=== PATIENT | female | born 1965 ===

== ENCOUNTER 2017-02-28 12:15 | Emergency (ER) | payer MEDICAID ==
[2017-02-28 12:19] VITALS: TEMP 98.8; BMI 38.0
[2017-02-28] MEDS ORDERED: Sodium Chloride 0.9% 1,000 ML IV ONE (12:34)
[2017-02-28 13:17] LABS: BASO # 0.1 K/uL (0.0-0.2); EOS # 0.2 K/uL (0.0-0.7); EOS % 1.5 % (0.0-4.0); RED CELL DISTRIBUTION WIDTH 19.3 % (11.5-14.5)
[2017-02-28 13:26] LABS: CHLORIDE 102 mmol/L (98-107); POTASSIUM 3.9 mmol/L (3.6-5.2); RBC URINE 1 /hpf (0-3); SODIUM 140 mmol/L (132-148); URINE BACTERIA RARE (<OCC); URINE BILIRUBIN NEGATIVE (NEGATIVE); URINE BLOOD NEGATIVE (NEGATIVE); URINE COLOR Yellow (YELLOW); URINE GLUCOSE (UA) NORMAL (Normal); URINE KETONE NEGATIVE (NEGATIVE); URINE LEUKOCYTE ESTERASE NEG Leu/uL (Negative); URINE PROTEIN NEGATIVE (NEGATIVE); URINE UROBILINOGEN NORMAL mg/dL (0.2-1.0); WBC URINE < 1 /hpf (0-5)
[2017-02-28 13:28] LABS: ALB/GLOB RATIO 1.3 (1.0-2.1); AST/SGOT 26 U/L (14-36); BILIRUBIN,TOTAL < 0.1 mg/dL (0.2-1.3); BLOOD UREA NITROGEN 8 mg/dL (7-17); CARBON DIOXIDE 23 mmol/L (22-30); GFR AFRICAN-AMERICAN > 60; TOTAL PROTEIN 7.9 g/dL (6.3-8.3)
[2017-02-28 13:29] LABS: ALKALINE PHOSPHATASE 79 U/L (38-126); ALT/SGPT 27 U/L (9-52); BASO % 1.2 % (0.0-2.0); CALCIUM 9.5 mg/dl (8.6-10.4); GLUCOSE,RANDOM 86 mg/dL (65-105); HEMATOCRIT 30.4 % (34.0-47.0); LYMPH # 3.8 K/uL (1.0-4.3); LYMPH % 34.3 % (20.0-40.0); MEAN CELL VOLUME 65.7 fL (81.0-99.0); MEAN CORPUSCULAR HEMOGLOBIN 19.2 pg (27.0-31.0); MEAN CORPUSCULAR HGB CONC 29.3 g/dL (33.0-37.0); MEAN PLATELET VOLUME 8.9 fL (7.2-11.7); MONO # 0.6 K/uL (0.0-0.8); MONO % 5.7 % (0.0-10.0); WHITE BLOOD COUNT 11.2 K/uL (4.8-10.8)
--- NOTE | 2017-02-28 13:48 | C.PDOC ---
History Of Present Illness 51 y/o female whose PMHx includes Iron Deficiency Anemia, presents to the ED after being sent from clinic for evaluation of dizziness and weakness which has been occurring in intermittent episodes for 2 weeks. As per clinic note, patient 's last hemoglobin count was 7.8 g/dL last month. Patient reports her LMP was and states it continued for the duration of 8 days. Since then, patient has been experiencing weakness, lightheadedness, and generalized tiredness. Otherwise, patient denies chest pain, shortness of breath, numbness/weakness, or history of blood transfusions in the past. Patient states she has been compliant with taking her iron supplements. Time Seen by Provider: 02/28/17 12:34 Chief Complaint (Nursing): Abnormal Labs History Per: Patient History/Exam Limitations: no limitations Onset/Duration Of Symptoms: Intermittent Episodes (around 2 weeks ) Current Symptoms Are (Timing): Still Present Additional History Per: Patient Past Medical History Reviewed: Historical Data, Nursing Documentation, Vital Signs Vital Signs: Last Vital Signs Temp 98.8 F 02/28/17 12:19 Pulse 74 02/28/17 13:58 Resp 18 02/28/17 13:58 BP 118/84 02/28/17 13:58 Pulse Ox 99 02/28/17 14:50 - Medical History PMH: Hypothyroidism Surgical History: No Surg Hx - [facility] Procedures LYMPHATIC STRUCT BIOPSY (03/10/14) PERCUTAN NEEDLE BIOPSY OF BREAST (02/24/14) Family History: States: Unknown Family Hx - Social History Hx Tobacco Use: No Hx Alcohol Use: No Hx Substance Use: No - Immunization History Hx Tetanus Toxoid Vaccination: No Hx Influenza Vaccination: No Hx Pneumococcal Vaccination: No Review Of Systems Except As Marked, All Systems Reviewed And Found Negative. Constitutional: Positive for: Malaise Cardiovascular: Negative for: Chest Pain Respiratory: Negative for: Shortness of Breath Neurological: Positive for: Weakness, Other (+lightheadedness). Negative for: Numbness, Headache Physical Exam - Physical Exam Appears: Non-toxic, No Acute Distress Skin: Normal Color, Warm, Dry Head: Atraumatic, Normacephalic Eye(s): bilateral: Normal Inspection, EOMI, Other (no conjunctival pallor, no nystagmus ) Nose: Normal Oral Mucosa: Moist Neck: Supple Chest: Symmetrical, No Deformity, No Tenderness Cardiovascular: Rhythm Regular, No Murmur Respiratory: Normal Breath Sounds, No Rales, No Rhonchi, No Wheezing Gastrointestinal/Abdominal: Soft, No Tenderness, No Guarding, No Rebound Back: Normal Inspection, No Vertebral Tenderness, No Paraspinal Tenderness Extremity: Bilateral: Atraumatic, Normal Color And Temperature, Normal ROM Pulses: Left Radial: Normal, Right Radial: Normal Neurological/Psych: Oriented x3, Normal Speech, Other (no focal deficits ) Gait: Steady ED Course And Treatment - Laboratory Results Result Diagrams: 02/28/17 13:14 02/28/17 13:14 Lab Interpretation: No Acute Changes O2 Sat by Pulse Oximetry: 99 (on RA) Pulse Ox Interpretation: Normal Medical Decision Making Medical Decision Making: Impression: 51y/o female with dizziness, weakness, and lightheadedness Plan: * labs * EKG * IV Fluids * reassess and disposition Progress Notes: labs and EKG ordered. Patient received IV Fluids. Lab results reviewed. Results show patient's hemoglobin level is 8.9 g/dL, which is an improvement since January and better than baseline. Attempted to contact clinic to speak with either Dr. White or resident without success. On reassessment, patient is resting comfortably, remains alert & oriented and is in no apparent distress. Patient does not display any hemodynamic instability and is stable for discharge. Case discussed with Dr. Beal, who agrees with plan to discharge. Lab results are explained to patient and she is advised continue taking Iron supplements as instructed and to follow up with clinic within a timely manner for further evaluation. Disposition Counseled Patient/Family Regarding: Diagnosis, Need For Followup - Disposition Referrals: Loreta White MD [Staff Provider] - Disposition: HOME/ ROUTINE Disposition Time: 13:46 Condition: STABLE Additional Instructions: Por favor, siga en la clnica en los prximos linares Ayesha lquidos, descanse y tome suplementos de narda para la anemia Regrese al servicio de urgencias en cualquier momento si los sntomas persisten o empeoran. Instructions: Iron Deficiency Anemia (ED) Print Language: CROATIAN - POA Present On Arrival: None - Clinical Impression Clinical Impression: EMERALD (iron deficiency anemia) - PA / SLIP MIXER / Resident Statement /DO has reviewed & agrees with the documentation as recorded. - Scribe Statement The provider has reviewed the documentation as recorded by the Scribe (Geno Melchor) All medical record entries made by the Scribe were at my direction and personally dictated by me. I have reviewed the chart and agree that the record accurately reflects my personal performance of the history, physical exam, medical decision making, and the department course for this patient. I have also personally directed, reviewed, and agree with the discharge instructions and disposition.
[2017-02-28 13:59] VITALS: BP 118/84; PULSE 74; RESP 18
[2017-02-28 14:18] VITALS: O2SAT 99
== END 2017-02-28 13:59 | disposition home or self-care (01) ==
LOC: C.ER 12:15
DX: D50.9 Iron deficiency anemia, unspecified (principal)

== ENCOUNTER 2017-07-09 12:34 | Emergency (ER) | payer MEDICAID ==
[2017-07-09 12:51] VITALS: TEMP 98.8
[2017-07-09] MEDS ORDERED: Sodium Chloride 0.9% 1,000 ML IV ONE (13:03)
[2017-07-09 13:23] LABS: HEMATOCRIT 29.5 % (34.0-47.0); MEAN CORPUSCULAR HEMOGLOBIN 20.7 pg (27.0-31.0); MEAN CORPUSCULAR HGB CONC 30.8 g/dL (33.0-37.0); MEAN PLATELET VOLUME 8.3 fL (7.2-11.7); RED CELL DISTRIBUTION WIDTH 17.9 % (11.5-14.5); WHITE BLOOD COUNT 8.4 K/uL (4.8-10.8)
[2017-07-09 13:24] LABS: BASO # 0.1 K/uL (0.0-0.2); BASO % 0.7 % (0.0-2.0); EOS # 0.1 K/uL (0.0-0.7); EOS % 1.7 % (0.0-4.0); LYMPH # 2.9 K/uL (1.0-4.3); LYMPH % 34.5 % (20.0-40.0); MONO # 0.5 K/uL (0.0-0.8)
--- NOTE | 2017-07-09 13:30 | C.PDOC ---
History Of Present Illness 51 year old female presents to the ED with complaints of vaginal bleeding for a few days. Patient notes an appointment in July with Dr. Dubois for a scheduled hysterectomy due to fibroids and bleeding. She denies fever, chills, nausea, vomiting or other complaints. Time Seen by Provider: 07/09/17 12:56 Chief Complaint (Nursing): Female Genitourinary History Per: Patient History/Exam Limitations: no limitations Onset/Duration Of Symptoms: Days (2 days ) Current Symptoms Are (Timing): Still Present Severity: Mild Associated Symptoms: denies: Fever, Chills, Nausea, Vomiting, Diarrhea Recent travel outside of the [place]: No Abnormal Vaginal Bleeding: Yes Past Medical History Reviewed: Historical Data, Nursing Documentation, Vital Signs Vital Signs: Last Vital Signs Temp 98.8 F 07/09/17 12:43 Pulse 78 07/09/17 14:24 Resp 16 07/09/17 14:24 BP 107/50 L 07/09/17 14:24 Pulse Ox 98 07/09/17 14:24 - Medical History PMH: Anemia, Hypothyroidism - [facility] Procedures LYMPHATIC STRUCT BIOPSY (03/10/14) PERCUTAN NEEDLE BIOPSY OF BREAST (02/24/14) Family History: States: Unknown Family Hx - Social History Hx Tobacco Use: No Hx Alcohol Use: No Hx Substance Use: No - Immunization History Hx Tetanus Toxoid Vaccination: No Hx Influenza Vaccination: No Hx Pneumococcal Vaccination: No Review Of Systems Constitutional: Negative for: Fever, Chills Cardiovascular: Negative for: Chest Pain Respiratory: Negative for: SOB with Excertion Gastrointestinal: Negative for: Nausea, Vomiting, Abdominal Pain, Diarrhea Genitourinary: Positive for: Vaginal Bleeding. Negative for: Dysuria, Hematuria Physical Exam - Physical Exam Appears: Non-toxic, No Acute Distress Skin: Warm, Dry Head: Atraumatic Eye(s): bilateral: Normal Inspection, EOMI Oral Mucosa: Moist Neck: Supple Chest: Symmetrical, No Deformity Cardiovascular: Rhythm Regular Respiratory: No Rhonchi, No Wheezing Gastrointestinal/Abdominal: Soft, No Tenderness, No Distention, No Guarding, No Rebound Pelvic: Vaginal Bleeding Extremity: Normal ROM, No Tenderness Neurological/Psych: Oriented x3, Normal Speech, Normal Cognition Gait: Steady ED Course And Treatment - Laboratory Results Result Diagrams: 07/09/17 13:17 07/09/17 13:17 Lab Interpretation: No Acute Changes Urine POC: Negative O2 Sat by Pulse Oximetry: 99 (room air ) Pulse Ox Interpretation: Normal Progress Note: Labs and UA were ordered. Patient was given fluids. treated with IVF NSS. On re-evaluation abdomen soft non-tender Reassessment Condition: Unchanged Disposition Counseled Patient/Family Regarding: Studies Performed, Diagnosis, Need For Followup - Disposition Referrals: Sukh Dubois [Staff Provider] - Disposition: HOME/ ROUTINE Disposition Time: 14:30 Condition: STABLE Additional Instructions: Follow up with [facility] for further evaluation Prescriptions: Nitrofurantoin Macrocrystals [Macrobid] 1 cap PO BID #14 cap Instructions: Dysfunctional Uterine Bleeding (ED), Uterine Fibroids (ED) Forms: [employer] (Bulgarian) Print Language: THAI - POA Present On Arrival: None - Clinical Impression Clinical Impression: DUB (dysfunctional uterine bleeding), Fibroids - Scribe Statement The provider has reviewed the documentation as recorded by the Scribcelsa Schneider All medical record entries made by the Félixibcelsa were at my direction and personally dictated by me. I have reviewed the chart and agree that the record accurately reflects my personal performance of the history, physical exam, medical decision making, and the department course for this patient. I have also personally directed, reviewed, and agree with the discharge instructions and disposition.
[2017-07-09 13:40] LABS: RBC URINE 3047 /hpf (0-3); URINE BACTERIA OCC (<OCC); URINE BILIRUBIN NEGATIVE (NEGATIVE); URINE BLOOD 3+ (NEGATIVE); URINE COLOR Red (YELLOW); URINE GLUCOSE (UA) NORMAL (Normal); URINE KETONE NEGATIVE (NEGATIVE); URINE LEUKOCYTE ESTERASE TRACE Leu/uL (Negative); URINE PROTEIN 2+ mg/dL (NEGATIVE); URINE UROBILINOGEN NORMAL mg/dL (0.2-1.0); WBC CLUMPS RARE /hpf; WBC URINE 684 /hpf (0-5)
[2017-07-09 13:41] LABS: CHLORIDE 102 mmol/L (98-107); SODIUM 138 mmol/L (132-148)
[2017-07-09 13:44] LABS: BLOOD UREA NITROGEN 8 mg/dL (7-17); CARBON DIOXIDE 25 mmol/L (22-30); GFR AFRICAN-AMERICAN > 60
[2017-07-09 13:45] LABS: CALCIUM 9.1 mg/dl (8.6-10.4); GLUCOSE,RANDOM 119 mg/dL (65-105)
[2017-07-09 14:24] VITALS: BP 107/50; PULSE 78; RESP 16
[2017-07-09 17:35] VITALS: O2SAT 99
== END 2017-07-09 14:24 | disposition home or self-care (01) ==
LOC: C.ER 12:34
DX: N93.8 Other specified abnormal uterine and vaginal bleeding (principal); D25.9 Leiomyoma of uterus, unspecified
CPT/HCPCS: 80048; 81001; 84703; 85025; 85610; 86850; 86900; 96360; 99285; J7040

== ENCOUNTER 2017-08-22 08:27 | Inpatient (IN) | payer MEDICAID ==
[2017-08-06 13:06] VITALS: BMI 38.9
--- NOTE | 2017-08-21 21:21 | CP.PCM.HP ---
History of Present Illness - History of Present Illness History of Present Illness: 51yo female with a h/o menorrhagia and fibroid uterus reporting here today for GARLAND and bilateral salpingectomy. The risks, benefits and alternatives has been discussed and pt has elected to proceed with the GARLAND. Present on Admission - Present on Admission Any Indicators Present on Admission: No Past Patient History - Infectious Disease Hx of Infectious Diseases: None - Past Medical History & Family History Past Medical History?: Yes - Past Social History Smoking Status: Never Smoked - CARDIAC Hx Cardiac Disorders: No - PULMONARY Hx Respiratory Disorders: No - NEUROLOGICAL Hx Neurological Disorder: Yes - HEENT Hx HEENT Problems: No - RENAL Hx Chronic Kidney Disease: No - ENDOCRINE/METABOLIC Hx Endocrine Disorders: Yes Hx Hypothyroidism: Yes - HEMATOLOGICAL/ONCOLOGICAL Hx Blood Disorders: Yes Hx Anemia: Yes (IRON DEFICENCY(DUE TO HEAVY VAGINAL BLEEDING)) - INTEGUMENTARY Hx Dermatological Problems: Yes Other/Comment: HX: HIDRADENITIS SUPPURATIVA - MUSCULOSKELETAL/RHEUMATOLOGICAL Hx Musculoskeletal Disorders: No - GASTROINTESTINAL Hx Gastrointestinal Disorders: No - GENITOURINARY/GYNECOLOGICAL Hx Genitourinary Disorders: Yes Other/Comment: HX: UTERINE VAGINAL BLEEDING( MENORRHAGIA)/LEIOMYOMA OF UTERUS - PSYCHIATRIC Hx Psychophysiologic Disorder: Yes Hx Anxiety: Yes Hx Depression: Yes Hx Substance Use: No - SURGICAL HISTORY Hx Surgeries: Yes Hx Tubal Ligation: Yes (1990) Meds Allergies/Adverse Reactions: Allergies Allergy/AdvReac Type Severity Reaction Status Date / Time No Known Allergies Allergy Verified 07/09/17 12:50 Physical Exam - Constitutional Appears: Well - Eye Exam Eye Exam: EOMI - Respiratory Exam Respiratory Exam: Clear to Auscultation Bilateral, NORMAL BREATHING PATTERN - Cardiovascular Exam Cardiovascular Exam: REGULAR RHYTHM, RRR - GI/Abdominal Exam GI & Abdominal Exam: Normal Bowel Sounds, Soft - Exam Bimanual exam: Uterine Enlargement - Extremities Exam Extremities exam: Positive for: normal inspection - Neurological Exam Neurological exam: Alert, Oriented x3 Assessment & Plan (1) Menorrhagia Status: Acute (2) Fibroids Status: Acute - Assessment and Plan (Free Text) Plan: NPO IV Fluids Mefoxin 2gms IVPB Sequential compression device - Date & Time Date: 08/22/17 Time: 07:30 Decision To Admit - Pt Status Changed To: Hospital Disposition Of: Inpatient - Admit Certification Admit to Inpatient:: After my assessment, the patient will require hospitalization for at least two midnights. This is because of the severity of symptoms shown, intensity of services needed, and/or the medical risk in this patient being treated as an outpatient. - InPatient: Physician Admission Certification:: monica - . Bed Request Type: AUTOMOTIVE ARTIST Admitting Physician: Sukh Dubois
[2017-08-22] MEDS ORDERED: Midazolam 2 MG/2 ML VIAL ONE (11:07)
[2017-08-22] MEDS ORDERED: Propofol 10 mg/ml Inj (20 ML) ONE (11:07)
[2017-08-22] MEDS ORDERED: Lactated Ringer's 1,000 ML IV ONE ×2 (11:08→12:22)
[2017-08-22] MEDS ORDERED: cefOXitin IV 2 gm in Dextrose 2 GM/50 ML BAG IVPB ONE (11:16)
[2017-08-22] MEDS ORDERED: Vasopressin 20 Units/ml Inj ONE ×2 (11:16)
[2017-08-22] MEDS ORDERED: Rocuronium 10 mg/ml (5 ml) ONE ×2 (11:50→11:51)
[2017-08-22] MEDS ORDERED: Morphine 4 MG/ML VIAL ONE (12:05)
[2017-08-22] MEDS ORDERED: Neostigmine Methylsulfate 3mg/3ml Syringe IV ONE (13:50)
[2017-08-22] MEDS ORDERED: Oxycodone/Acetaminophen 5/325 mg Tab PO PRN ×2 (13:50→13:52)
--- NOTE | 2017-08-22 13:50 | PCM.SURG1 ---
Surgeon's Initial Post Op Note - Surgeon's Notes Surgeon: Dr Dubois Cut Off Machine Unloader: Dr Biswas, Dr Downs, Cecelia Henry( FP Resident ) Type of Anesthesia: General Endo Anesthesia Administered By: DELFINO Cochran Supervised by Dr Tigre Adan Pre-Operative Diagnosis: Fibroid Uterus with Menorrhagia Operative Findings: 8-10wk sized multinodular fibroid uterus with normal appearing bilateral ovaries and fallopian tubes. EBL- 100mls. IV Fluids- 1300mls. Urine output- 200mls Post-Operative Diagnosis: Saame as Preop diagnosis Operation Performed: Total Abdominal Hysterectomy with Bilateral Salpingectomy Specimen/Specimens Removed: Uterus with Cervix and Bilateral fallopian tubes Estimated Blood Loss: EBL {In ML}: 100 Post-Op Condition: Good Date of Surgery/Procedure: 08/22/17 Time of Surgery/Procedure: 13:51
[2017-08-22] MEDS ORDERED: cefOXitin IV 1 gm in Dextrose 1 GM/50 ML BAG IVPB SCH (14:00)
[2017-08-22] MEDS ORDERED: Acetaminophen IV 1,000 MG in Premixed IV 1 EA IV PRN ×2 (14:02→15:55)
[2017-08-22] MEDS: HYDROmorphone 0.5 mg/0.5 ml ISec IVP PRN ×4 (14:10→15:10)
[2017-08-22] MEDS: Sodium Chloride 0.9% 1,000 ML IV SCH (19:00)
[2017-08-22] MEDS: cefOXitin IV 1 gm in Dextrose 1 GM/50 ML BAG IVPB SCH (19:57)
[2017-08-23] MEDS: cefOXitin IV 1 gm in Dextrose 1 GM/50 ML BAG IVPB SCH ×2 (03:50→11:12)
[2017-08-23] MEDS: Sodium Chloride 0.9% 1,000 ML IV SCH (04:57)
[2017-08-23 07:32] LABS: HEMATOCRIT 25.9 % (34.0-47.0); MEAN CELL VOLUME 65.1 fL (81.0-99.0); MEAN CORPUSCULAR HEMOGLOBIN 19.8 pg (27.0-31.0); MEAN CORPUSCULAR HGB CONC 30.5 g/dL (33.0-37.0); MEAN PLATELET VOLUME 8.7 fL (7.2-11.7); RED CELL DISTRIBUTION WIDTH 17.1 % (11.5-14.5); WHITE BLOOD COUNT 11.7 K/uL (4.8-10.8)
[2017-08-23 07:59] LABS: CHLORIDE 100 mmol/L (98-107); POTASSIUM 3.9 mmol/L (3.6-5.2); SODIUM 134 mmol/L (132-148)
[2017-08-23 08:01] LABS: CARBON DIOXIDE 22 mmol/L (22-30); GFR AFRICAN-AMERICAN > 60
[2017-08-23 08:02] LABS: BLOOD UREA NITROGEN 7 mg/dL (7-17); CALCIUM 8.9 mg/dl (8.6-10.4); GLUCOSE,RANDOM 108 mg/dL (65-105)
--- NOTE | 2017-08-23 09:20 | CP.PCM.PN ---
Objective - Vital Signs/Intake and Output Vital Signs (last 24 hours): Temp Pulse Resp BP Pulse Ox 98.3 F 80 18 150/70 100 08/23/17 07:25 08/23/17 07:25 08/23/17 07:25 08/23/17 07:25 08/23/17 07:25 Intake and Output: 08/23/17 08/23/17 06:59 18:59 Intake Total 600 Output Total 1550 Balance -950 - Medications Medications: Current Medications Hydromorphone/Sodium Chloride (Dilaudid Minesweeping Officer) 6 mg IV Q4H PRN; Protocol PRN Reason: Pain, severe (8-10) Last Admin: 08/23/17 04:48 Dose: 6 mg Sodium Chloride (Sodium Chloride 0.9%) 1,000 mls @ 75 mls/hr IV .[id number] [facility] Last Admin: 08/23/17 04:57 Dose: Not Given Acetaminophen 1,000 mg/ (Miscellaneous) 100 mls @ 400 mls/hr IV ONCE PRN Stop: 08/23/17 18:00 Last Admin: 08/22/17 16:00 Dose: 100 mls Cefoxitin Sodium (Mefoxin Iv 1 Gm Duplex) 1 gm in 50 mls @ 50 mls/hr IVPB Q8H [facility] Stop: 08/23/17 12:59 Last Admin: 08/23/17 03:50 Dose: 50 mls/hr Ibuprofen (Motrin Tab) 600 mg PO Q4H PRN PRN Reason: Pain, Mild (1-3) Oxycodone/Acetaminophen (Percocet 5/325 Mg Tab) 1 tab PO Q4 PRN PRN Reason: Pain, moderate (4-7) Stop: 08/25/17 13:51 Oxycodone/Acetaminophen (Percocet 5/325 Mg Tab) 2 tab PO Q4H PRN PRN Reason: Pain, severe (8-10) Stop: 08/25/17 13:53 - Labs Labs: 08/23/17 07:18 08/23/17 07:18
[2017-08-23 11:21] VITALS: O2SAT 99
--- NOTE | 2017-08-23 17:17 | CP.PCM.DIS ---
Provider - Provider Date of Admission: 08/22/17 13:50 Attending physician: Sukh Dubois Time Spent in preparation of Discharge (in minutes): 40 Hospital Course - Lab Results Lab Results: Most Recent Lab Values WBC 11.7 K/uL (4.8-10.8) H 08/23/17 07:18 RBC 3.98 Mil/uL (3.80-5.20) 08/23/17 07:18 Hgb 7.9 g/dL (11.0-16.0) L 08/23/17 07:18 Hct 25.9 % (34.0-47.0) L 08/23/17 07:18 MCV 65.1 fL (81.0-99.0) L 08/23/17 07:18 MCH 19.8 pg (27.0-31.0) L 08/23/17 07:18 MCHC 30.5 g/dL (33.0-37.0) L 08/23/17 07:18 RDW 17.1 % (11.5-14.5) H 08/23/17 07:18 Plt Count 287 K/uL (130-400) 08/23/17 07:18 MPV 8.7 fL (7.2-11.7) 08/23/17 07:18 Sodium 134 mmol/L (132-148) 08/23/17 07:18 Potassium 3.9 mmol/L (3.6-5.2) 08/23/17 07:18 Chloride 100 mmol/L (98-107) 08/23/17 07:18 Carbon Dioxide 22 mmol/L (22-30) 08/23/17 07:18 Anion Gap 15 (10-20) 08/23/17 07:18 BUN 7 mg/dL (7-17) 08/23/17 07:18 Creatinine 0.5 mg/dL (0.7-1.2) L 08/23/17 07:18 Est GFR ( Amer) > 60 08/23/17 07:18 Est GFR (Non-Af Amer) > 60 08/23/17 07:18 Random Glucose 108 mg/dL (65-105) H 08/23/17 07:18 Calcium 8.9 mg/dl (8.6-10.4) 08/23/17 07:18 Blood Type A POSITIVE 08/22/17 09:32 Antibody Screen Negative 08/22/17 09:32 - Hospital Course Hospital Course: 51yo female with a h/o menorrhagia and fibroid uterus reporting here today for GARLAND and bilateral salpingectomy. The risks, benefits and alternatives has been discussed and pt has elected to proceed with the GARLAND. Hospital Course: Total Abdominal Hysterectomy with Bilateral Salpingectomy performed on 08/22/[address] Dubois. 8-10wk sized multinodular fibroid uterus with normal appearing bilateral ovaries and fallopian tubes. EBL- 100mls. IV Fluids- 1300mls. Urine output- 200mls Patient was seen and examined in the morning and afternoon. Patient states she has been ambulating and is passing gas. Patient has been urinating without difficulty. Patient states her pain is much improved from yesterday. She denies nausea or vomiting. Patient is hemodynamically stable. Patient stable to be discharged home per Dr. Dubois. Patient to continue home medications. Patient to start new medications: Percocet every 4 hours as needed for severe pain. Motrin 600mg every 6 hours as needed for mild to moderate pain. Cephalxin 500mg every 8 hours for 5 days. Sindy-Sequels 325mg once daily. No heavy lifting. Keep abdominal wound clean and dry. Patient instructed to follow up with Dr. Dubois in the clinic in one week. Please call [phone] to make an appointment. Discharge Exam - Head Exam Head Exam: ATRAUMATIC, NORMAL INSPECTION, NORMOCEPHALIC - Eye Exam Eye Exam: EOMI, Normal appearance - ENT Exam ENT Exam: Mucous Membranes Moist - Respiratory Exam Respiratory Exam: NORMAL BREATHING PATTERN - Cardiovascular Exam Cardiovascular Exam: REGULAR RHYTHM, RRR - GI/Abdominal Exam GI & Abdominal Exam: Normal Bowel Sounds, Soft, Tenderness Additional comments: abdominal incision dry clean and intact - Extremities Exam Extremities exam: normal inspection - Neurological Exam Neurological exam: Alert, Oriented x3 - Psychiatric Exam Psychiatric exam: Normal Affect, Normal Mood - Skin Skin Exam: Dry, Intact, Normal Color, Warm Discharge Plan - Discharge Medications Prescriptions: Ferrous Sulfate [Feosol] 325 mg PO ONCE #30 tab Ibuprofen [Motrin Tab] 600 mg PO Q6H PRN #28 tab PRN Reason: Pain, Mild (1-3) oxyCODONE/Acetaminophen [Percocet 5/325 mg Tab] 1 tab PO Q4 PRN #20 tab PRN Reason: Pain, Moderate (4-7) - Follow Up Plan Condition: GOOD Disposition: HOME/ ROUTINE
[2017-08-23 18:12] VITALS: RESP 20
--- NOTE | 2017-08-24 03:01 | OP ---
PROCEDURE DATE: PREOPERATIVE DIAGNOSES: A 51-year-old female with fibroid uterus and menorrhagia, unresponsive to medical management. POSTOPERATIVE DIAGNOSES: A 51-year-old female with fibroid uterus and menorrhagia, unresponsive to medical management. PROCEDURE DONE: Total abdominal hysterectomy with bilateral salpingectomy. SURGEON: Sukh Dubois MD ADMISSIONS MANAGER RN: .Dr. Downs and Rhoda Mclean, who is a family practice resident. TYPE OF ANESTHESIA: General endotracheal. ANESTHESIA ADMINISTERED BY: Dolores Bates CRNA, supervised by Tigre Adan MD FINDINGS: A 8-to 10-week size multinodular fibroid uterus with normal-appearing bilateral ovaries and fallopian tubes. ESTIMATED BLOOD LOSS: 100 mL IV FLUID INTAKE: 1300 mL. URINE OUTPUT: 200 mL of clear urine. COMPLICATIONS: There were no complications. SPECIMEN: Uterus and fallopian tubes to pathology. DESCRIPTION OF PROCEDURE: After obtaining informed consent following discussion about risks, benefits, alternatives and possible complications, the patient was sent to the OR with IV running and Garland catheter in place. The The patient was placed in a supine position on the OR table where general anesthesia was induced without difficulty. The patient was then prepped and draped in the usual sterile fashion. A Pfannenstiel skin incision was made about 2.5 cm from the pubic symphysis and this was carried through the subcutaneous tissue, so the rectus fascia was identified. A transverse incision was made in the rectus fascia and this was extended laterally to both sides using Metzenbaum scissors. The rectus fascia was lifted above the underlying rectus muscles both superiorly and inferiorly by means of a blunt dissection and sharp dissection with Dunne scissors. The rectus muscle was in the midline to expose the peritoneum, which was tented between 2 Barbara clamps and sharply entered with Metzenbaum scissors and with good visualization of the bladder. Once the abdominal cavity was entered, the above findings were noted and O'Esquivel-O'Karlos retractor was placed into the incision and the bowels were packed away using moist laparotomy sponges. The uterus was lifted into the incision and a uterine corkscrew was placed on the fundus to help retraction and manipulation of the uterus. The round ligaments on both sides were clamped, cauterized and transacted using the LigaSure device. The bladder reflection on the surface of the cervix was incised along the reflection and was later pushed inferiorly using sponge forceps to push the bladder away from the cervix. When these have been completed, the ovarian ligaments and fallopian tubes attachment to both corner of the uterus were grasped with a LigaSure device, cauterized and transacted. Hemostasis was assured. After these steps on both sides, the right uterine vessels were skeletonized using Metzenbaum scissors and pickup forceps. The uterine vessels on the right side were grasped with Becky clamps at the level of the internal os. These were clamped, cut and doubly ligated with Vicryl 0 sutures. The same procedure was repeated on the left side. There was a sequential clamping of the tissues along both sides of the cervix using Becky clamps where the tissues were clamped, cut and ligated using Vicryl 0 sutures. This was performed until the vagina vault was encountered. The uterus was at this point amputated from the vault by means of Shant scissors. The vaginal cuff was sutured to the ipsilateral uterosacral ligaments to provide suspension. The uterine vault was later closed using [id number] sutures of 0-Vicryl. This was performed so the hemostasis was noted over the operative sites. Once this procedure has been done, attention was turned over to both adnexae where both tubes were picked up with Sarina forceps and the broad ligament under these segments were grasped, cauterized and transacted using the Bovie device. The fallopian tubes segment taken in this manner was sent for pathological evaluation. Irrigation of the pelvis with warmed normal saline after the procedure was undertaken. Once hemostasis was assured, all laparotomy pads and instruments were removed from the abdomen. Attention was then turned over to the anterior abdominal wall, which was closed in layers with 2-0 Vicryl for the peritoneum and the rectus muscles. The rectus fascia was re-approximated using Vicryl # 0. The subcutaneous tissue was brought together using #2-0 plain catgut. The skin was closed in the subcuticular fashion using #4-0 Vicryl. All counts of instruments, laparotomy pads, and needles used were correct x3, and the patient was sent to the recovery room awake and in stable condition. Sukh Dubois MD MTDD
[2017-08-24 19:40] VITALS: BP 121/83; PULSE 99; TEMP 98.2
== END 2017-08-23 20:10 | disposition home or self-care (01) | DRG 359 ==
LOC: C.SDS 08:27 → C.9E 13:50 → C.9S 14:34 → C.6T 18:49
PROVIDERS: ADMIT Obstetrics & Gynecology; ATTEND Obstetrics & Gynecology
PROC: 0UT70ZZ Resection of Bilateral Fallopian Tubes, Open Approach (ICD-10-PCS; 2017-08-22)
PROC: 0UTC0ZZ Resection of Cervix, Open Approach (ICD-10-PCS; 2017-08-22)
PROC: 0UT90ZZ Resection of Uterus, Open Approach (ICD-10-PCS; principal; 2017-08-22 11:08)
DX: D25.1 Intramural leiomyoma of uterus (principal); E03.9 Hypothyroidism, unspecified; N92.0 Excessive and frequent menstruation with regular cycle; N93.9 Abnormal uterine and vaginal bleeding, unspecified; N80.0 Endometriosis of uterus; N84.0 Polyp of corpus uteri; Z98.51 Tubal ligation status

== ENCOUNTER 2018-02-06 11:08 | Emergency (ER) | payer MEDICAID ==
[2018-02-06 11:08] VITALS: BMI 40.6
[2018-02-06 11:21] VITALS: O2SAT 99
--- NOTE | 2018-02-06 11:42 | C.PDOC ---
History Of Present Illness 52 year old female presents to the ED for evaluation of palpitation, and intermittent CP since last night. Patient is also c/o SOB as well. Patient denies any associated dizziness. Patient denies fever, chills, nausea, vomit, diarrhea, recent travel, sick contacts. PALPITATIONS, CP SINCE LAST NIGHT. INTERMIT. NO ASSOC DIZZY. +SOB EXAM NARD CTA B/L NO W/R/R CV RRR REMAINDER NEG Time Seen by Provider: 02/06/18 11:32 Chief Complaint (Nursing): Chest Pain History Per: Patient History/Exam Limitations: no limitations Onset/Duration Of Symptoms: Days Current Symptoms Are (Timing): Gone Associated Symptoms: Chest Pain Exacerbating Factor(s): Pos: None Recent travel outside of the [place]: No Additional History Per: Patient Past Medical History Reviewed: Historical Data, Nursing Documentation, Vital Signs Vital Signs: Last Vital Signs Temp 98.4 F 02/06/18 11:28 Pulse 76 02/06/18 11:28 Resp 20 02/06/18 11:28 BP 115/79 02/06/18 11:28 Pulse Ox 99 02/06/18 12:13 - Medical History PMH: Anemia, Anxiety, Bronchitis, Depression, Fibromyalgia, Hypothyroidism Denies: Chronic Kidney Disease Surgical History: No Surg Hx - [facility] Procedures LYMPHATIC STRUCT BIOPSY (03/10/14) PERCUTAN NEEDLE BIOPSY OF BREAST (02/24/14) Family History: States: Unknown Family Hx - Social History Hx Tobacco Use: No Hx Alcohol Use: No Hx Substance Use: No - Immunization History Hx Tetanus Toxoid Vaccination: No Hx Influenza Vaccination: No Hx Pneumococcal Vaccination: No Review Of Systems Constitutional: Negative for: Fever, Chills Cardiovascular: Positive for: Chest Pain, Palpitations Respiratory: Positive for: Shortness of Breath. Negative for: Cough Gastrointestinal: Negative for: Nausea, Vomiting, Abdominal Pain Musculoskeletal: Positive for: Back Pain Skin: Negative for: Rash Neurological: Negative for: Weakness, Numbness Physical Exam - Physical Exam Appears: Non-toxic, No Acute Distress Skin: Normal Color, Warm, Dry Head: Atraumatic, Normacephalic Eye(s): bilateral: Normal Inspection Nose: No Discharge Oral Mucosa: Moist Neck: Normal ROM, Supple Chest: Symmetrical Cardiovascular: Rhythm Regular, No Murmur Respiratory: Normal Breath Sounds, No Rales, No Rhonchi, No Wheezing Gastrointestinal/Abdominal: Soft, No Tenderness, No Guarding, No Rebound Extremity: Normal ROM, No Tenderness, No Swelling Neurological/Psych: Oriented x3 Gait: Steady ED Course And Treatment - Laboratory Results Result Diagrams: 02/06/18 12:02 02/06/18 12:02 ECG: Interpreted By Me ECG Rhythm: Sinus Rhythm ECG Interpretation: Normal Rate From EC O2 Sat by Pulse Oximetry: 99 (On RA) Pulse Ox Interpretation: Normal Medical Decision Making Medical Decision Making: Impression: palpitations, CP Plan: * Labs * CXR * Toradol 30 mg IM Disposition Counseled Patient/Family Regarding: Studies Performed, Diagnosis, Need For Followup - Disposition Referrals: YOUR,PMD [Other] Disposition: HOME/ ROUTINE Disposition Time: 13:04 Condition: GOOD Additional Instructions: KEENE PRUEBA DE TALITA, XRAY Y EKG SON NORMALES. SEGUIMIENTO CON KEENE MDICO. Instructions: Palpitations Forms: [facility] (Nepali), Work Excuse Print Language: [place] - Clinical Impression Clinical Impression: Chest discomfort, Palpitations - Scribe Statement The provider has reviewed the documentation as recorded by the Scribe Raymond Huang All medical record entries made by the Scribe were at my direction and personally dictated by me. I have reviewed the chart and agree that the record accurately reflects my personal performance of the history, physical exam, medical decision making, and the department course for this patient. I have also personally directed, reviewed, and agree with the discharge instructions and disposition.
[2018-02-06 12:13] LABS: BASO % 0.7 % (0.0-2.0); EOS # 0.1 K/uL (0.0-0.7); EOS % 1.4 % (0.0-4.0); HEMOGLOBIN 13.9 g/dL (11.0-16.0); LYMPH % 31.9 % (20.0-40.0); MEAN CELL VOLUME 86.3 fL (81.0-99.0); MEAN CORPUSCULAR HEMOGLOBIN 29.1 pg (27.0-31.0); MEAN CORPUSCULAR HGB CONC 33.7 g/dL (33.0-37.0); MEAN PLATELET VOLUME 9.4 fL (7.2-11.7); MONO # 0.4 K/uL (0.0-0.8); MONO % 7.1 % (0.0-10.0); NEUT # 3.7 K/uL (1.8-7.0); NEUT % 58.9 % (50.0-75.0); NRBC % 0.1 % (0.0-2.0); RBC 4.79 Mil/uL (3.80-5.20); RED CELL DISTRIBUTION WIDTH 17.9 % (11.5-14.5); WHITE BLOOD COUNT 6.2 K/uL (4.8-10.8)
[2018-02-06 12:29] LABS: BLOOD UREA NITROGEN 7 mg/dL (7-17); CALCIUM 8.7 mg/dl (8.6-10.4); GFR AFRICAN-AMERICAN > 60; GFR NON-AFRICAN AMERICAN > 60
--- NOTE | 2018-02-06 12:40 | RAD ---
HISTORY: COMPARISON: 02/13/2016. TECHNIQUE: Chest PA and lateral FINDINGS: LINES AND TUBES: None. LUNG AND PLEURA: The lungs are well inflated and clear. HEART AND MEDIASTINUM: The heart is not enlarged. The hilar and mediastinal contours are within normal limits. SKELETAL STRUCTURES: The bony structures are within normal limits for the patient's age. VISUALIZED UPPER ABDOMEN: Normal. OTHER FINDINGS: None. IMPRESSION: No active pulmonary disease.
[2018-02-06 13:21] VITALS: BP 110/70; PULSE 72; RESP 16; TEMP 98.6
== END 2018-02-06 13:30 | disposition home or self-care (01) ==
LOC: C.ER 11:08
DX: R00.2 Palpitations (principal); M79.7 Fibromyalgia; E03.9 Hypothyroidism, unspecified
CPT/HCPCS: 71046; 80048; 84484; 85025; 96374; 99284; J1885

== ENCOUNTER 2018-09-08 10:53 | Emergency (ER) | payer MEDICAID ==
[2018-09-08 11:20] VITALS: BMI 39.0
[2018-09-08] MEDS ORDERED: Sodium Chloride 0.9% 1,000 ML IV ONE (11:47)
[2018-09-08 11:49] VITALS: RESP 18
[2018-09-08] MEDS ORDERED: Albuterol 0.083% Inhal Sol (2.5 mg/3 mL) UD IH STA (11:49)
[2018-09-08 11:55] VITALS: PULSE 72
[2018-09-08] MEDS ORDERED: Albuterol 0.083% Inhal Sol (2.5 mg/3 mL) UD ONE (11:59)
[2018-09-08] MEDS ORDERED: Sodium Chloride 0.9% 1,000 ML ONE (12:00)
[2018-09-08 12:09] LABS: BASO # 0.1 K/uL (0.0-0.2); BASO % 0.5 % (0.0-2.0); EOS # 0.2 K/uL (0.0-0.7); EOS % 1.8 % (0.0-4.0); HEMOGLOBIN 14.8 g/dL (11.0-16.0); LYMPH # 3.8 K/uL (1.0-4.3); LYMPH % 38.7 % (20.0-40.0); MEAN CELL VOLUME 87.9 fL (81.0-99.0); MEAN CORPUSCULAR HEMOGLOBIN 30.4 pg (27.0-31.0); MEAN CORPUSCULAR HGB CONC 34.6 g/dL (33.0-37.0); MEAN PLATELET VOLUME 9.5 fL (7.2-11.7); MONO # 0.5 K/uL (0.0-0.8); MONO % 5.4 % (0.0-10.0); NEUT # 5.3 K/uL (1.8-7.0); NEUT % 53.6 % (50.0-75.0); RBC 4.87 Mil/uL (3.80-5.20); RED CELL DISTRIBUTION WIDTH 13.5 % (11.5-14.5); WHITE BLOOD COUNT 9.9 K/uL (4.8-10.8)
[2018-09-08 12:22] LABS: ALB/GLOB RATIO 1.4 (1.0-2.1); ALBUMIN 4.4 g/dL (3.5-5.0); ALT/SGPT 30 U/L (9-52); AST/SGOT 29 U/L (14-36); BLOOD UREA NITROGEN 9 mg/dL (7-17); CALCIUM 9.3 mg/dl (8.6-10.4); GFR NON-AFRICAN AMERICAN > 60; LIPASE 72 U/L (23-300)
[2018-09-08 12:36] LABS: B-TYPE NATRIURETIC PEPTIDE 30.7 pg/mL (0-900); CK-MB 1.29 ng/mL (0.0-3.38)
[2018-09-08 12:42] LABS: T4 13.5 ug/dL (5.5-11.0)
[2018-09-08 12:55] LABS: T3 2.11 nmol/L (1.49-2.60)
--- NOTE | 2018-09-08 13:12 | RAD ---
HISTORY: SOB COMPARISON: Chest x-ray performed 02/06/18 TECHNIQUE: Chest PA and lateral FINDINGS: Examination limited by habitus. LUNGS: No focal consolidation. Please note that chest x-ray has limited sensitivity for the detection of pulmonary masses. PLEURA: No significant pleural effusion identified. No definite pneumothorax . CARDIOVASCULAR: The cardiomediastinal silhouette appears within normal limits of size. Faint atherosclerotic calcification present. OSSEOUS STRUCTURES: No acute osseous abnormality identified. VISUALIZED UPPER ABDOMEN: Unremarkable. OTHER FINDINGS: None. IMPRESSION: No focal consolidation, significant pleural effusion, or definite pneumothorax identified.
--- NOTE | 2018-09-08 13:47 | C.PDOC ---
History Of Present Illness 52 y/o female presents to the ED complaining of chest pain associated with SOB and feeling generally weak. States symptoms have been ongoing intermittently for the past month. Patient also reports having multiple episodes over the last year. Patient attributes symptoms to recent change in thyroid med regimen; One month ago her thyroid medication was decreased from 200 to 150. She also reports feeling anxious and nervous, which has been ongoing for the past 8 years following the of her son. Admits having "panic attacks" while getting these symptoms. Otherwise patient denies fever, vomiting, diarrhea, dysuria, urinary frequency, back pain, abdominal pain or difficulty swallowing. Time Seen by Provider: 09/08/18 11:14 Chief Complaint (Nursing): Medical Clearance History Per: Vender (#[id number]) History/Exam Limitations: no limitations Onset/Duration Of Symptoms: Intermittent Episodes Current Symptoms Are (Timing): Still Present Past Medical History Reviewed: Historical Data, Nursing Documentation, Vital Signs Vital Signs: Last Vital Signs Temp 98.5 F 09/08/18 11:54 Pulse 72 09/08/18 11:54 Resp 18 09/08/18 11:54 BP 131/82 09/08/18 11:54 Pulse Ox 97 09/08/18 11:54 - Medical History PMH: Anemia, Anxiety, Bronchitis, Depression, Fibromyalgia, Hypothyroidism Denies: Chronic Kidney Disease - [facility] Procedures LYMPHATIC STRUCT BIOPSY (03/10/14) PERCUTAN NEEDLE BIOPSY OF BREAST (02/24/14) Family History: States: Unknown Family Hx - Social History Hx Tobacco Use: No Hx Alcohol Use: No Hx Substance Use: No - Immunization History Hx Tetanus Toxoid Vaccination: No Hx Influenza Vaccination: No Hx Pneumococcal Vaccination: No Review Of Systems Except As Marked, All Systems Reviewed And Found Negative. Constitutional: Positive for: Weakness (generalized). Negative for: Fever, Chills Eyes: Negative for: Vision Change ENT: Negative for: Other (difficulty swallowing) Cardiovascular: Positive for: Chest Pain Respiratory: Positive for: Shortness of Breath Genitourinary: Negative for: Dysuria, Frequency, Incontinence Neurological: Negative for: Weakness, Numbness, Change in Speech, Headache, Dizziness Psych: Positive for: Anxiety (and nervousness) Physical Exam - Physical Exam Appears: Non-toxic, No Acute Distress, Other (Appears anxious) Skin: Normal Color, Warm, Dry Head: Atraumatic, Normacephalic Eye(s): bilateral: Normal Inspection, EOMI Nose: Normal Oral Mucosa: Moist Throat: Normal, No Erythema, No Exudate Neck: Normal ROM, Supple Lymphatic: Normal Exam Chest: Symmetrical, No Tenderness Cardiovascular: Rhythm Regular Respiratory: Normal Breath Sounds, No Rales, No Rhonchi, No Wheezing Gastrointestinal/Abdominal: Soft, No Tenderness, No Distention Extremity: Normal ROM Extremity: Bilateral: Atraumatic, Normal Color And Temperature, Normal ROM Neurological/Psych: Oriented x3, Normal Speech, Normal Cognition, Normal Cranial Nerves (2-12 in tact), Other (No focal deficits) ED Course And Treatment - Laboratory Results Result Diagrams: 09/08/18 12:00 09/08/18 12:00 ECG: Interpreted By Me, Viewed By Me ECG Rhythm: Sinus Rhythm Rate From EC (bpm) O2 Sat by Pulse Oximetry: 97 (RA) Pulse Ox Interpretation: Normal - Other Rad CXR X-Ray: Read By Radiologist Interpretation: FINDINGS: Examination limited by habitus. LUNGS: No focal consolidation. Please note that chest x-ray has limited sensitivity for the detection of pulmonary masses. PLEURA: No significant pleural effusion identified. No definite pneumothorax . CARDIOVASCULAR: The cardiomediastinal silhouette appears within normal limits of size. Faint atherosclerotic calcification present. OSSEOUS STRUCTURES: No acute osseous abnormality identified. VISUALIZED UPPER ABDOMEN: Unremarkable. OTHER FINDINGS: None. IMPRESSION: No focal consolidation, significant pleural effusion, or definite pneumothorax identified. Progress Note: Blood work and urine sent to lab for analysis. CXR and EKG rev iewed. Patient treated with 324mg Aspirin PO, albuterol neb, and IV fluids. Prior records reviewed: Patient was seen in April of this year for similar complaints, also had negative work-up at that time. Labs reviewed, trop negative. D-dimer negative. TSH appears wnl. Informed patient of all diagnos tics. Instructed patient on strict follow-up with PMD, computer food or baggage handling rampman used to ensure patients understanding. Pt has no symptoms at the moment and has had the symptoms for multiple months therefore strict follow adviced. Patient feels comfortable going home. Case discussed with Dr Garcia, agreed upon plan and discharge. Disposition Counseled Patient/Family Regarding: Studies Performed, Diagnosis, Need For Followup - Disposition Referrals: [facility] [Outside] Disposition: HOME/ ROUTINE Disposition Time: 14:06 Condition: STABLE Additional Instructions: Follow up with PMD in 1-2 days. Return to ER if symptoms persist or worsen. 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 - Scribe Statement The provider has reviewed the documentation as recorded by the Scribe (Kimmie Rizo) All medical record entries made by the Scribe were at my direction and pers onally dictated by me. I have reviewed the chart and agree that the record accurately reflects my personal performance of the history, physical exam, medical decision making, and the department course for this patient. I have also personally directed, reviewed, and agree with the discharge instructions and disposition.
[2018-09-08 14:04] VITALS: BP 118/86; TEMP 97.9
[2018-09-08 14:07] VITALS: O2SAT 97
[2018-09-08 14:14] LABS: HCG,QUALITATIVE URINE NEGATIVE (NEGATIVE); SQUAMOUS EPITHIAL 2 /hpf (0-5); URINE BILIRUBIN NEGATIVE (NEGATIVE); URINE BLOOD NEGATIVE (NEGATIVE); URINE CLARITY Clear (Clear); URINE COLOR Straw (YELLOW); URINE GLUCOSE (UA) NORMAL (Normal); URINE LEUKOCYTE ESTERASE NEG Leu/uL (Negative); URINE PROTEIN NEGATIVE (NEGATIVE); URINE UROBILINOGEN NORMAL mg/dL (0.2-1.0)
--- NOTE | 2018-09-09 19:47 | CARD ---
APPROVED REPORT Date of service: 09/08/2018 EKG Measurement Heart [id number] <Conclusion> Normal sinus rhythm Normal ECG
== END 2018-09-08 14:22 | disposition home or self-care (01) ==
LOC: C.ER 10:53
DX: R07.9 Chest pain, unspecified (principal); D64.9 Anemia, unspecified; F41.9 Anxiety disorder, unspecified
CPT/HCPCS: 71046; 80053; 81001; 82550; 82553; 83690; 83880; 84436; 84443; 84481; 84484; 84703; 85025; 85378; 93005; 94640; 96360; 99285; J7030